=== PATIENT | female | born 1985 | race Caucasian/White ===

== ENCOUNTER → 2024-10-06 12:03 | Outpatient (REF) | payer SELFPAY | LOC: PNTC 12:03 | PROVIDERS: ATTENDING PHYSICIAN Obstetrics & Gynecology | DX: O09.529 Supervision of elderly multigravida, unspecified trimester (principal) | CPT/HCPCS: 76816 ==

== ENCOUNTER 2024-11-04 20:15 | Inpatient (IN) | payer OTHER, SELFPAY ==
[2024-11-04 20:20] VITALS: BMI 35.2
[2024-11-04 20:34] VITALS: BP 134/85
[2024-11-04 21:04] LABS: % Basophils 0.4 % (0-2); % Eosinophils 1.1 % (0-6); % Immature Granulocytes 0.5 % (0-0.5); % Lymphocytes 19.5 % (20.5-51.1); % Monocytes 7.5 % (1.7-9.3); Absolute Eosinophils 0.1 10^3/uL (0-0.7); Absolute Lymphocytes 1.6 10^3/uL (1.2-3.4); Absolute Monocytes 0.6 10^3/uL (0.1-0.6); Absolute Neutrophils 5.9 10^3/uL (1.4-6.5); Hematocrit 32.4 % (37.0-47.0); Hemoglobin 10.5 g/dL (12.0-16.0); Mean Corp Hgb Conc. 32.4 g/dL (33.0-37.0); Mean Corpuscular Hgb 26.7 pg (27.0-31.0); Mean Corpuscular Volume 82.4 fL (81.0-99.0); Mean Platelet Volume 10.1 fL (7.4-10.4); Nucleated Red Blood Cells % 0 %; Platelet Count 248 10^3/uL (130-400); Red Blood Cell Count 3.93 10^6/uL (4.20-5.40); Red Cell Dist. Width 13.3 % (11.5-14.5); White Blood Cell Count 8.3 10^3/uL (4.8-10.8)
[2024-11-04] MEDS: PITOCIN 30 UNITS/NSS 500 ML IV (21:32)
[2024-11-04] MEDS: LR 1000 IV (21:39)
[2024-11-04] MEDS: XYLOCAINE-MPF 1% VIAL 30 ML INFIL (21:56)
[2024-11-04 22:47] LABS: ALT (SGPT) 14 U/L (0-35); AST (SGOT) 18 U/L (14-36); Albumin 3.2 g/dl (3.5-5.0); Alkaline Phosphatase 130 U/L (38-126); Blood Urea Nitrogen 12 mg/dl (7-17); Calcium 8.7 mg/dl (8.4-10.2); Carbon Dioxide 19 mmol/L (22-30); Chloride 106 mmol/L (98-107); Estimated Creatinine Clearance > 125 ml/min; Glucose 101 mg/dl (70-99); Sodium 133 mmol/L (135-145); Total Bilirubin 0.3 mg/dl (0.2-1.3); Total Protein 5.7 g/dl (6.3-8.2); eGFR > 60.00
[2024-11-04] MEDS: TYLENOL 650 MG PO (22:52)
[2024-11-05] MEDS: MOTRIN 600 MG PO ×4 (00:56→21:36)
[2024-11-05] MEDS: TYLENOL 650 MG PO ×3 (02:56→20:09)
[2024-11-05 05:58] LABS: Hematocrit 32.2 % (37.0-47.0); Hemoglobin 10.2 g/dL (12.0-16.0)
[2024-11-05] MEDS: PRENATAL PLUS 1 TABLET PO (08:16)
[2024-11-05] MEDS: CLARITIN 10 MG PO (11:01)
[2024-11-05] MEDS: SENOKOT-S 1 TABLET PO (11:04)
[2024-11-06] MEDS: MOTRIN 600 MG PO (03:56)
[2024-11-06] MEDS: PRENATAL PLUS 1 TABLET PO (08:06)
[2024-11-06] MEDS: CLARITIN 10 MG PO (08:06)
== END 2024-11-06 11:22 | disposition home or self-care (01) | DRG 807 ==
LOC: LDRP 20:15
PROVIDERS: ADMITTING PHYSICIAN Student in an Organized Health Care Education/Training Program
PROC: 10E0XZZ Delivery of Products of Conception, External Approach (ICD-10-PCS; 2024-11-04)
PROC: 0UQMXZZ Repair Vulva, External Approach (ICD-10-PCS; 2024-11-04)
PROC: 0HQ9XZZ Repair Perineum Skin, External Approach (ICD-10-PCS; 2024-11-04)
DX: O48.0 Post-term pregnancy (principal); Z37.0 Single live birth; Z3A.40 40 weeks gestation of pregnancy; O69.1XX0 Labor and delivery complicated by cord around neck, with compression, not applicable or unspecified; O70.0 First degree perineal laceration during delivery; O34.211 Maternal care for low transverse scar from previous cesarean delivery; N85.8 Other specified noninflammatory disorders of uterus
CPT/HCPCS: 36415; 80053; 85014; 85018; 85025; 86780; 86850; 86900; 86901